=== PATIENT | male | born 1970 | race Caucasian/White ===

== ENCOUNTER 2018-03-01 06:16 | Day surgery (SDC) | payer OTHER ==
[~2018-03-01] VITALS: Ht 165.1 cm; Wt 98.9 kg
[2018-03-01] MEDS ORDERED: LIDOCAINE 2% 1000 MG/50 ML VIAL INJ ONE (07:43)
== END 2018-03-01 09:37 | disposition home or self-care (01) ==
LOC: MOR 06:16 → MMU 06:19 → MOR 09:37
PROVIDERS: ATTEND Internal Medicine Gastroenterology
DX: K74.60 Unspecified cirrhosis of liver (principal); K75.9 Inflammatory liver disease, unspecified; F17.210 Nicotine dependence, cigarettes, uncomplicated
CPT/HCPCS: 47000; 76942; 88307; 88313; J2001; Q0092

== ENCOUNTER 2021-11-29 08:52 | Day surgery (SDC) | payer OTHER ==
[~2021-11-29] VITALS: Ht 160 cm; Wt 85.3 kg
== END 2021-11-29 13:10 | disposition home or self-care (01) ==
LOC: MDS 08:52 → MMU 08:52 → MDS 13:10
PROVIDERS: ATTEND Internal Medicine Gastroenterology
DX: K70.11 Alcoholic hepatitis with ascites (principal); Z79.899 Other long term (current) drug therapy; Z20.822 Contact with and (suspected) exposure to COVID-19
CPT/HCPCS: 49083; 76705; 87426; Q0092

== ENCOUNTER 2022-05-21 05:05 | Emergency (ER) | payer OTHER ==
[~2022-05-21] VITALS: Ht 167.6 cm; Wt 77.1 kg
[2022-05-21 05:14] VITALS: BP 107/65
--- NOTE | 2022-05-21 05:14 | NUR ---
TO BED AMBULATORY
--- NOTE | 2022-05-21 05:15 | NUR ---
Dr. Rivas examining patient.
--- NOTE | 2022-05-21 05:20 | NUR ---
COVID-19 swab collected and sent to lab.
[2022-05-21 05:39] LABS: BASOPHILS % (AUTO) 0.4 % (0.0-2.0); EOSINOPHILS # (AUTO) 0.1 K/uL (0-0.4); EOSINOPHILS % (AUTO) 1.9 % (0.0-4.0); HEMATOCRIT 34.1 % (36-52); HEMOGLOBIN 11.2 g/dL (12.0-18.0); LYMPHOCYTES # (AUTO) 0.3 K/uL (2.0-11.5); LYMPHOCYTES % (AUTO) 7.4 % (20.5-51.1); MEAN CORPUSCULAR HEMOGLOBIN 30 pg (27-31); MEAN CORPUSCULAR HGB CONC 33 g/dL (33-37); MEAN CORPUSCULAR VOLUME 90.4 fL (80-94); MONOCYTES # (AUTO) 0.5 K/uL (0.8-1.0); MONOCYTES % (AUTO) 11.8 % (1.7-9.3); NEUTROPHILS # (AUTO) 3.6 K/uL (1.8-7.7); NEUTROPHILS % (AUTO) 78.5 % (42.2-75.2); PLATELET COUNT (AUTO) 92 K/uL (140-450); RED BLOOD CELL COUNT(AUTO) 3.77 MIL/uL (4.20-6.10); RED CELL DISTRIBUTION WIDTH 15.9 % (11.6-13.7); WHITE BLOOD COUNT (AUTO) 4.6 K/uL (4.8-10.8)
--- NOTE | 2022-05-21 05:42 | NUR ---
BIB self with c/o SOB and difficulty breathing, per pt worse when laying down. pt noted with ascitic abdomen. denies any pain. pmhx liver cirrhosis. denies any allergies.
--- NOTE | 2022-05-21 05:44 | NUR ---
Blood draw done and sent to lab
[2022-05-21 05:54] LABS: ALBUMIN 2.7 g/dL (3.4-5.0); ANION GAP 13.1 (8-16); POTASSIUM 5.1 mmol/L (3.5-5.1); TOTAL BILIRUBIN 0.6 mg/dL (0.0-1.0)
--- NOTE | 2022-05-21 06:18 | NUR ---
Pt ambulated to restroom. gait steady
--- NOTE | 2022-05-21 07:16 | NUR ---
Report given to Agustín DA SILVA for transfer of care
[2022-05-21 09:10] VITALS: BP 92/62
--- NOTE | 2022-05-21 09:15 | NUR ---
IV removed, catheter intact and site benign. Applied folded 4x4 gauze and tape to stop bleeding.
--- NOTE | 2022-05-21 09:19 | NUR ---
Patient discharged with v/s stable. Written and verbal after care instructions ABOUT ASCITES AND PARACENTESIS given and explained. Patient verbalized understanding. Ambulatory with steady gait. All questions addressed prior to discharge. Advised to follow up with PMD. DR HSU AWARE OF VITALS, OKAY TO D/C. PT REPORTS FEELING BETTER. DENIES ANY COMPLAINTS AT THIS TIME
== END 2022-05-21 09:19 | disposition home or self-care (01) ==
LOC: MED 05:05
DX: R18.8 Other ascites (principal); Z20.822 Contact with and (suspected) exposure to COVID-19; K74.60 Unspecified cirrhosis of liver
CPT/HCPCS: 36415; 71045; 80053; 85025; 85610; 85730; 87426; 93005; 99285; Q0092

== ENCOUNTER 2022-08-11 20:48 | Emergency (ER) | payer OTHER ==
[~2022-08-11] VITALS: Ht 167.6 cm; Wt 75.3 kg
[2022-08-11 21:36] VITALS: BP 93/50
--- NOTE | 2022-08-11 23:25 | NUR ---
PT TAKEN TO RADIOLOGY
--- NOTE | 2022-08-11 23:31 | NUR ---
PT CALLED BY LAB WITH NO ANSWER.
--- NOTE | 2022-08-11 23:33 | NUR ---
PT RETURN FROM RADIOLOGY
[2022-08-11 23:43] LABS: BASOPHILS % (AUTO) 0.2 % (0.0-2.0); EOSINOPHILS # (AUTO) 0.1 K/uL (0-0.4); EOSINOPHILS % (AUTO) 1.3 % (0.0-4.0); HEMATOCRIT 31.2 % (36-52); HEMOGLOBIN 10.1 g/dL (12.0-18.0); LYMPHOCYTES # (AUTO) 0.3 K/uL (2.0-11.5); LYMPHOCYTES % (AUTO) 5.6 % (20.5-51.1); MEAN CORPUSCULAR HEMOGLOBIN 27 pg (27-31); MEAN CORPUSCULAR HGB CONC 32 g/dL (33-37); MEAN CORPUSCULAR VOLUME 84.6 fL (80-94); MONOCYTES # (AUTO) 0.5 K/uL (0.8-1.0); MONOCYTES % (AUTO) 9.7 % (1.7-9.3); NEUTROPHILS # (AUTO) 4.4 K/uL (1.8-7.7); NEUTROPHILS % (AUTO) 83.2 % (42.2-75.2); PLATELET COUNT (AUTO) 86 K/uL (140-450); RED BLOOD CELL COUNT(AUTO) 3.68 MIL/uL (4.20-6.10); RED CELL DISTRIBUTION WIDTH 17.6 % (11.6-13.7); WHITE BLOOD COUNT (AUTO) 5.3 K/uL (4.8-10.8)
[2022-08-11 23:56] LABS: PROTHROMBIN TIME 10.6 secs (10.8-13.4)
[2022-08-11 23:58] LABS: ALBUMIN 2.4 g/dL (3.4-5.0); ANION GAP 13.7 (8-16); CARBON DIOXIDE 23.2 mmol/L (21-32); CREATININE 1.3 mg/dL (0.6-1.3); POTASSIUM 4.9 mmol/L (3.5-5.1); TOTAL BILIRUBIN 0.3 mg/dL (0.0-1.0)
--- NOTE | 2022-08-12 03:06 | NUR ---
PT TAKEN TO BED 7
--- NOTE | 2022-08-12 03:15 | NUR ---
52 Y/O M presents with fluid in abdomen x10 days with pressure denies any pain at the moment. pt stated this is a regular for him and he has been seen at [facility] x3 this year for the same issue. pt stated he has an appt for the same procedure at [place] coming up. pt stated he arthur shad some NV but denies any diarrhea. pt is A&Ox4, skin intact, respirations even and unlabored. pmh- R tumor surgery pending, hernia surgery NKA
[2022-08-12] MEDS ORDERED: LIDOCAINE/EPI 2% 1:100000 20 ML VIAL INJ ONE (03:20)
--- NOTE | 2022-08-12 03:43 | NUR ---
Dr. Yeung examining patient.
[2022-08-12 05:21] VITALS: BP 93/69
--- NOTE | 2022-08-12 05:23 | NUR ---
Patient discharged with v/s stable. Written and verbal after care instructions given and explained. Patient verbalized understanding. Ambulatory with steady gait. All questions addressed prior to discharge. Advised to follow up with PMD.
== END 2022-08-12 03:06 | disposition home or self-care (01) ==
LOC: MED 20:48
DX: R18.8 Other ascites (principal); K74.60 Unspecified cirrhosis of liver
CPT/HCPCS: 36415; 49083; 74176; 80053; 82140; 85025; 85610; 99285; J2001

== ENCOUNTER 2022-08-12 20:12 | Inpatient (IN) | payer OTHER ==
[~2022-08-12] VITALS: Ht 167.6 cm; Wt 75.3 kg
[2022-08-12 20:45] VITALS: BP 110/63
--- NOTE | 2022-08-12 21:00 | NUR ---
C/O abdominal distention x 11 days. Pt was seen last night for the same. paracentesis was attempted with very little fluid drained. PMHx: Cirrhosis, Liver failure
--- NOTE | 2022-08-12 21:15 | NUR ---
SL ESTABLISHED, LABS DRAWN
[2022-08-12 21:49] LABS: BASOPHILS % (AUTO) 0.2 % (0.0-2.0); EOSINOPHILS % (AUTO) 0.3 % (0.0-4.0); HEMATOCRIT 29.1 % (36-52); HEMOGLOBIN 9.6 g/dL (12.0-18.0); LYMPHOCYTES # (AUTO) 0.2 K/uL (2.0-11.5); LYMPHOCYTES % (AUTO) 3.4 % (20.5-51.1); MEAN CORPUSCULAR HEMOGLOBIN 28 pg (27-31); MEAN CORPUSCULAR HGB CONC 33 g/dL (33-37); MEAN CORPUSCULAR VOLUME 83.9 fL (80-94); MONOCYTES # (AUTO) 0.4 K/uL (0.8-1.0); MONOCYTES % (AUTO) 7.9 % (1.7-9.3); NEUTROPHILS # (AUTO) 4.2 K/uL (1.8-7.7); NEUTROPHILS % (AUTO) 88.2 % (42.2-75.2); PLATELET COUNT (AUTO) 76 K/uL (140-450); RED BLOOD CELL COUNT(AUTO) 3.47 MIL/uL (4.20-6.10); RED CELL DISTRIBUTION WIDTH 17.5 % (11.6-13.7); WHITE BLOOD COUNT (AUTO) 4.7 K/uL (4.8-10.8)
[2022-08-12 22:07] LABS: ALBUMIN 2.3 g/dL (3.4-5.0); ANION GAP 12.9 (8-16); CARBON DIOXIDE 22.2 mmol/L (21-32); CREATININE 1.2 mg/dL (0.6-1.3); POTASSIUM 4.1 mmol/L (3.5-5.1); TOTAL BILIRUBIN 0.4 mg/dL (0.0-1.0)
--- NOTE | 2022-08-12 22:30 | NUR ---
Dr. Horton examining patient.
[2022-08-12 23:03] LABS: PROTHROMBIN TIME 10.8 secs (10.8-13.4)
--- NOTE | 2022-08-13 | NUR ---
resting in bed with eyes closed, respirations regular and unlabored
--- NOTE | 2022-08-13 04:45 | NUR ---
swab obtained and sent to lab
[2022-08-13] MEDS ORDERED: LORazepam 2 MG/ML VIAL IVP PRN (04:55)
[2022-08-13] MEDS ORDERED: MORPHINE SULFATE 2 MG/ML SYR IVP PRN (04:55)
[2022-08-13] MEDS ORDERED: ACETAMINOPHEN 325 MG TAB PO PRN (04:55)
[2022-08-13] MEDS ORDERED: HYDROcodone/APAP 5/325 MG 1 TAB TAB PO PRN (04:55)
[2022-08-13] MEDS ORDERED: ONDANSETRON 4 MG/2 ML VIAL IVP PRN (04:55)
--- NOTE | 2022-08-13 05:51 | NUR ---
REPORT CALLED TO AVINASH BROWN
[2022-08-13 06:05] VITALS: BP 88/48
--- NOTE | 2022-08-13 06:16 | NUR ---
PT. ARRIVED ON UNIT @ 0624 FROM ED
[2022-08-13 08:00] VITALS: BP 91/56
--- NOTE | 2022-08-13 08:00 | NUR ---
GOT REPORT FROM THE NIGHT, PT SLEEPING , NO SOB.[id number]
--- NOTE | 2022-08-13 08:57 | NUR ---
PATIENT HAS BEEN SCREENED AND CATEGORIZED LOW NUTRITION RISK. PATIENT WILL BE SEEN WITHIN 7 DAYS OF ADMISSION. 08/13/22 REVIEWED BY ROMEL MA RD
[2022-08-13 12:00] VITALS: BP 91/56
--- NOTE | 2022-08-13 13:45 | NUR ---
US CANCELLED BECAUSE PT SAYS HE MADE AN APPOINTMENT AT [facility] FOR TOMORROW. PT ALSO SAYS HE WANTS THE ABD BE FIXED WHERE IT IS OPENED IN ER TEMPTING TO DO THORACOCENTESIS, IT IS LEAKING THE DRESSING IS ON THE SITE ,IN THE RIGHT SIDE OF ABD. HIS DR INFORMED OF THE ABOVE. [id number]
[2022-08-13 15:14] VITALS: BP 100/91
--- NOTE | 2022-08-13 16:02 | NUR ---
PT IS DISCHARGED AND DISCHARGE INSTRUCTION IS GIVEN, ID AND IV REMOVED PT ESCORTED TO CARE WITHOUT ANY DISCOMFORT.[id number]
--- NOTE | 2022-08-14 11:32 | NUR ---
CALLED DR FACUNDO CLAROS[facility]S OFFICE LOCATED AT [address] [place] [phone]. SPOKE WITH SOFIE WHO WAS ABLE TO HELP ME SCHEDULE A FOLLOW UP APPOINTMENT FOR 08/21/2022 AT 1400. CALLED PATIENT AND INFORMED HIM OF THE ABOVE INFORMATION.
== END 2022-08-13 15:50 | disposition home or self-care (01) | DRG 252 ==
LOC: MED 20:12 → MMU 08-13 04:58 → MTU 08-13 06:00
PROVIDERS: ADMIT Hospitalist; ATTEND Student in an Organized Health Care Education/Training Program
DX: K91.89 Other postprocedural complications and disorders of digestive system (principal); E43 Unspecified severe protein-calorie malnutrition; R18.8 Other ascites; K74.60 Unspecified cirrhosis of liver; Z20.822 Contact with and (suspected) exposure to COVID-19; K76.0 Fatty (change of) liver, not elsewhere classified; Y92.89 Other specified places as the place of occurrence of the external cause; Y84.4 Aspiration of fluid as the cause of abnormal reaction of the patient, or of later complication, without mention of misadventure at the time of the procedure
CPT/HCPCS: 36415; 71045; 76705; 80053; 83690; 85025; 85610; 85730; 87081; 93005; 99285; J0696; J7060; Q0092

== ENCOUNTER 2023-02-04 12:54 | Day surgery (SDC) | payer OTHER ==
[~2023-02-04] VITALS: Ht 167.6 cm; Wt 75.3 kg
[2023-02-04] MEDS ORDERED: diphenhydrAMINE 50 MG/ML VIAL ONE (13:30)
[2023-02-04] MEDS ORDERED: MIDAZOLAM 5 MG/5 ML VIAL ONE (13:30)
[2023-02-04] MEDS ORDERED: fentaNYL citrate 0.05 MG/ML VIAL ONE (13:30)
[2023-02-04] MEDS ORDERED: fentaNYL citrate 0.05 MG/ML VIAL IVP ONE (15:35)
[2023-02-04] MEDS ORDERED: MIDAZOLAM 2 MG/2 ML VIAL IVP ONE (15:35)
== END 2023-02-04 15:11 | disposition home or self-care (01) ==
LOC: MDS 12:54 → MMU 12:56 → MDS 14:40
PROVIDERS: ATTEND Internal Medicine Gastroenterology
DX: D64.9 Anemia, unspecified (principal); Z80.0 Family history of malignant neoplasm of digestive organs
CPT/HCPCS: 45378; J2250; J3010; J1200